=== PATIENT | male | born 1990 | race Caucasian/White ===

== ENCOUNTER 2021-10-12 13:04 | Emergency (ER) | payer BC ==
[2021-10-12 13:38] VITALS: BP 148/89; PULSE 83; TEMP 98.1; BMI 25.8
[2021-10-12] MEDS ORDERED: KETOROLAC TROMETHAMINE 60 MG/2 ML VIAL IM ONE (13:54)
[2021-10-12] MEDS ORDERED: KETOROLAC TROMETHAMINE 60 MG/2 ML VIAL ONE (13:58)
== END 2021-10-12 15:02 | disposition home or self-care (01) ==
LOC: JER 13:04
PROC: 3E0233Z Introduction of Anti-inflammatory into Muscle, Percutaneous Approach (ICD-10-PCS; principal; 2021-10-12)
DX: M54.50 Low back pain, unspecified (principal)
CPT/HCPCS: 99284-25